=== PATIENT | male | born 1940 | race Caucasian/White ===

== ENCOUNTER 2018-04-24 03:49 | Inpatient (IN) | payer OTHER ==
[2018-04-24] VITALS (13 sets, daily range): BP systolic 127–155; BP diastolic 60–84
[~2018-04-24] VITALS: Ht 180.3 cm; Wt 73.5 kg
[~2018-04-24 03:49] MED LIST: ALBUTEROL2.5 MG/0.5 INH; PREDNISONE 5 MG5 MG PO; PREDNISONE50 MG PO
[2018-04-24] MEDS ORDERED: LIPITOR 20 MG T20 M1 PO (04:01)
[2018-04-24] MEDS ORDERED: ADVAIR HFA 230M12 GM INH (04:02)
[2018-04-24 04:31] LABS: ABSOLUTE EOSINOPHILS 0.3 thou/uL (0.0-0.7); ABSOLUTE LYMPHOCYTES 1.5 thou/uL (0.8-5.3); ABSOLUTE MONOCYTES 0.7 thou/uL (0.0-1.2); ABSOLUTE NEUTROPHILS 4.2 thou/uL (1.6-8.1); BASOPHILS 0.5 %; EOSINOPHILS 3.9 %; HEMATOCRIT 42.1 % (42.0-52.0); HEMOGLOBIN 14.1 gm/dL (14.0-18.0); LYMPHOCYTES 22.3 %; MCH 36.4 pg (26.0-34.0); MCHC 33.5 g/dL (28.0-37.0); MCV 108.6 fL (80.0-100.0); MONOCYTES 10.4 %; MPV 8.2 fl. (7.2-11.1); NUCLEATED RBCS 0 /100WBC; PLATELET COUNT* 220 thou/uL (150-400); POLYS 62.9 %; RBC 3.87 mil/uL (4.50-6.00); RDW-CV 12.8 % (10.5-14.5); WBC 6.7 thou/uL (4.0-11.0)
[2018-04-24 04:35] LABS: CALCIUM 8.7 mg/dL (8.5-10.1); CREATININE 0.9 mg/dL (0.6-1.3); POTASSIUM 3.6 mmol/L (3.5-5.1); PROTIME 10.5 Seconds (9.20-11.50)
[2018-04-24 04:45] LABS: TOTAL BILIRUBIN 0.4 mg/dL (<0.1-1.0)
[2018-04-24 04:46] LABS: TROPONIN-I LEVEL 1.26 ng/mL (<0.06)
[2018-04-24] MEDS ORDERED: ATORVASTATIN CA40 MG PO (05:23)
--- NOTE | 2018-04-24 08:02 | NUR ---
DR. TILLMAN AND CARDIOLOGY LOGGER ALL ROUND TO SEE PT
--- NOTE | 2018-04-24 10:24 | EKG ---
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: DARLEEN : 1940 Requested By: Lynda Wan Order Number: [id number] MD: Abdulkadir Cano Measurements Intervals [place] Rate: 62 P: 70 CO: 154 QRS: -34 QRSD: 97 T: 48 QT: 407 QTc: 414 Interpretive Statements Sinus rhythm Left axis deviation Borderline low voltage, extremity leads Compared to ECG 03/28/2014 10:39:26 Sinus tachycardia no longer present Myocardial infarct finding no longer present Electronically Signed On 04-24-2018 10:24:34 TOWER CLIMBER by Abdulkadir Cano [email or web address] <ELECTRONICALLY SIGNED> By: Abdulkadir Cano MD, FACC 04/24/18 1024 0452 0452 Abdulkadir Cano MD, FAC /EPI
--- NOTE | 2018-04-24 10:24 | EKG ---
[place] [address] ELECTROCARDIOGRAM REPORT Name: FEMI ZAMORANO Room: [address] ADM IN [facility].#: [id number] Admission: 04/24/18 Attend Phys: Brenda Zhang MD Discharge: Date of : 42 Report #: [id number] THIS REPORT FOR: //name// [facility] ED Test Date: 2018-04-24 Test Time: 03:54:57 Pat Name: FEMI ZAMORANO Department: Room: [facility] Gender: M Illuminator: [facility] : 1940 Requested By: Lynda Wan Order Number: [id number] MD: Abdulkadir Cano Measurements Intervals [place] Rate: 68 P: 71 NV: 154 QRS: -33 QRSD: 98 T: 48 QT: 389 QTc: 414 Interpretive Statements Sinus rhythm Left axis deviation Compared to ECG 03/28/2014 10:39:26 Sinus tachycardia no longer present Myocardial infarct finding no longer present Electronically Signed On 04-24-2018 10:24:28 COOLING PAN TENDER by Abdulkadir Cano [email or web address] <ELECTRONICALLY SIGNED> By: Abdulkadir Cano MD, FACC 04/24/18 1024 0354 0354 Abdulkadir Cano MD, [facility] /EPI
--- NOTE | 2018-04-24 10:26 | NUR ---
PT ARRIVED ON UNIT AT 0851 VIA BED WITH NURSING STAFF. PT IS A&O X4, AMBULATORY, DENIES ANY PAIN AT THIS TIME. O2 2LPM VIA NC, LS CTA. HEART MONITOR TRACING SINUS RHYTHM AT THIS TIME. PT HAS HEPARIN GTT RUNNING AT 881/HR AND NS RUNNING AT 100ML/HR, IV IN LEFT FA, NO S/S INFILTRATION. PT ALSO HAS NITRO PASTE ON. ASSESSMENT COMPLETE, PT ORIENTED TO CALL LIGHT AND ROOM. PT TO GO TO MASTER TECHNICIAN FOR PROCEDURE.
[2018-04-24 10:44] LABS: CHOLESTEROL 146 mg/dL (<200); HDL CHOLESTEROL 49 mg/dL (>40); LDL CHOLESTEROL 88 mg/dL (<100); TRIGLYCERIDE 47 mg/dL (<150); VLDL 9 mg/dL (<40)
[2018-04-24 10:45] LABS: SERUM ASSESSMENT Clear
--- NOTE | 2018-04-24 15:03 | CARD ---
[address] [address] CARDIAC CATH REPORT Name: FEMI ZAMORANO Room: [address] IN .R.#: [id number] Admission: 04/24/18 Attend Phys: Brenda Zhang MD Discharge: Date of : 42 Report #: [id number] THIS REPORT FOR: //name// APPROVED REPORT Study performed: 04/24/2018 09:41:34 Patient Details The patient is a 77 year-old male Event Personnel Abdulkadir Cano Players Club Representative, Sepideh Child Monitor, Joao Arboleda Schmalzbach, Brittany RN Tax Professional, James Renteria Fisher Lobster Procedures Performed Left Heart Cath w/or w/o Coronaries [id number] [facility] Place w/wo Plasty Single LAD [id number] Indication Non-STEMI Risk Factors Hypercholesterolemia, Hypertension Admission/Lab Medications/Medications given during procedure Platelet Aff. Inhib., Angiomax bolus and infusion Procedure Narrative The patient was brought electively to the Cardiac Catheterization Laboratory and was prepped and draped in a sterile manner. The left femoral was infiltrated with 2% Lidocaine subcutaneous anesthesia. A Slender Glidesheath sheath was inserted into the . Coronary angiography was performed using coronary diagnostic catheters. The right coronary system was accessed and visualized with a JL4 catheter. The left coronary system was accessed and visualized with a JR4 catheter. The left ventricle was accessed and visualized with a Angled PIG catheter. Left ventricular/Aortic Valve gradient assessed via catheter pullback. Pre-demployment femoral angiogram was performed . Closure device was deployed with a Fr Angioseal. The patient tolerated the procedure well and there were no complications associated with the procedure. There was no hematoma. Intraoperative Conscious Sedation Sedation start time: 10:30 Case end Time: [place] [address] CARDIAC CATH REPORT Name: YVONNELoretaFEMI Brito Room: [address] IN [facility]#: [id number] Admission: 04/24/18 Attend Phys: Brenda Zhang MD Discharge: Date of : 42 Report #: [id number] 12:17 Fentanyl 25 mcg Fluoro Time: 25.5 minutes Dose: DAP 574192 cGycm2 3148 mGy Contrast Type and Amount: Visipaque 230 ml Hemodynamics The aortic pressure is 143/82 mmHg with a mean of 135 mmHg. The left ventricular pressure is 143/21 mmHg with a mean of mmHg. The left ventricular end diastolic pressure is 23 mmHg. There was no gradient across the aortic valve upon pullback. PCI Technique Lesion Anticoagulation was achieved with Angiomax. Percutaneous coronary intervention was performed on the proximal left anterior descending artery segment. The lesion stenosis prior to intervention was 80% with GRETA 3 flow. A 6F XB LAD 3.5 Guide Catheter was used to engage the LCA ostium. A IG: BMW 190cm Interventional Guidewire was used to cross the lesion. BALLOON DILATION A Balloon catheter Trek RX 2.25 X 12 was inserted and inflated up to 14.00atm for 11seconds. STENT DEPLOYMENT A stent Kirk RX Stent 2.20L22fq was inserted and inflated up to 18.00atm for 14seconds. Final angiography reveals 10 % stenosis with GRETA 3 flow. PCI Technique Lesion 2 Percutaneous Coronary Intervention was performed on the ostial LAD. Percutaneous coronary intervention was performed on the ostial LAD. The lesion stenosis prior to intervention was 80% with GRETA 3 flow. Balloon Dilation A Balloon catheter Trek RX 2.25 X 12 was inserted and inflated up to 16atm for 15seconds. Stent Deployment A drug-eluting stent [place] RX Stent 2.5X12mm was inserted and inflated up to dary for seconds. Final angiography reveals 0 % stenosis with GRETA 3 [place] [address] CARDIAC CATH REPORT Name: FEMI ZAMORANO Room: [address]#: [id number] Admission: 04/24/18 Attend Phys: Brenda Zhang MD Discharge: Date of : 42 Report #: [id number] flow. Conclusion #1 significant coronary artery disease characterized by the following: A 80% ostial and proximal LAD stenoses B 40% proximal and 75% calcified midcircumflex stenosis C 40 proximal and mid right coronary narrowing, this being a dominant vessel #2 successful percutaneous coronary intervention with deployment of drug-eluting stents at the sites of 80% ostial and 80% proximal calcified LAD stenosis with 10 and 0% residual narrowing following stent deployment and GRETA-3 flow to the distal vessel Recommendations Cardiac Risk Reduction Program Aggressive Medical Therapy Medications Administered Aspirin (any) Ticagrelor <ELECTRONICALLY SIGNED> By: James Renteria MD, [facility] 04/24/18 1502 1502 1502Jogurpreet Renteria MD, [facility] /INF
[2018-04-25] VITALS (7 sets, daily range): BP systolic 98–137; BP diastolic 52–76
--- NOTE | 2018-04-25 04:08 | NUR ---
ASSUMED CARE OF PT AFTER REPORT AT 1930. PT A&OX4. VSS. PHYSICAL ASSESSMENT COMPLETED AND CHARTED. PT ON RA WITH 94% O2 SAT. PT TRACING SR ON TELE. PT COMPLAINED OF CHEST PAIN & N/V- MORPHINE & ZOFRAN GIVEN. REDDISH BROWN LIQUID EMESIS NOTED. APPROXIMATELY 50 MLS. POST CATH SITE TO LEFT GROIN C/D/I. ATTEMPTED POST CATH SITE TO RIGHT WRIST & RIGHT GROIN C/D. NO BLEEDING NOTED. PT RESTED WELL ON BED. CALL LIGHT WITHIN REACH. BED IN LOW POSITION.
[2018-04-25 05:15] LABS: HEMATOCRIT 38.4 % (42.0-52.0); HEMOGLOBIN 13.3 gm/dL (14.0-18.0); MCHC 34.6 g/dL (28.0-37.0); MCV 107.1 fL (80.0-100.0); MPV 8.2 fl. (7.2-11.1); NUCLEATED RBCS 0 /100WBC; PLATELET COUNT* 203 thou/uL (150-400); RBC 3.59 mil/uL (4.50-6.00); RDW-CV 13.1 % (10.5-14.5); WBC 8.9 thou/uL (4.0-11.0)
[2018-04-25 05:33] LABS: CALCIUM 8.2 mg/dL (8.5-10.1); CREATININE 0.8 mg/dL (0.6-1.3); POTASSIUM 3.8 mmol/L (3.5-5.1)
[2018-04-25 05:43] LABS: ABSOLUTE LYMPHOCYTES 0.8 thou/uL (0.8-5.3); ABSOLUTE MONOCYTES 0.2 thou/uL (0.0-1.2); ABSOLUTE NEUTROPHILS 7.9 thou/uL (1.6-8.1)
[2018-04-25 05:44] LABS: ANISOCYTOSIS 1+; PLATELET ESTIMATE ADEQUATE; POIKILOCYTOSIS 1+
[2018-04-25 06:07] LABS: URINE BILIRUBIN NEGATIVE (Negative); URINE BLOOD TRACE (Negative); URINE CLARITY CLEAR; URINE COLOR YELLOW; URINE GLUCOSE-RANDOM NEGATIVE (Negative); URINE KETONES TRACE (Negative); URINE LEUKOCYTES-REFLEX NEGATIVE (Negative); URINE NITRITE-REFLEX NEGATIVE (Negative); URINE PROTEIN NEGATIVE (Negative); URINE SPECIFIC GRAVITY <= 1.005 (1.005-1.030); URINE UROBILINOGEN 0.2 E.U./dl (0.2-1.0)
[2018-04-25] MEDS ORDERED: NITROGLYCERIN0.4 MG SUBLING (11:25)
[2018-04-25] MEDS ORDERED: BRILINTA90 MG PO (11:25)
[2018-04-25] MEDS ORDERED: LOPRESSOR25 PO (11:25)
[2018-04-25] MEDS ORDERED: ASPIR 8181 MG PO (11:28)
--- NOTE | 2018-04-25 15:25 | 2DMMODE ---
[place] [address] 2 D/M-MODE ECHOCARDIOGRAM Name: LONAFEMI Brito Room: [address] IN [facility]#: [id number] Admission: 04/24/18 Attend Phys: Brenda Zhang, Discharge: Date of : 42 Date of Service: 04/25/18 1524 Report #: [id number] THIS REPORT FOR: //name// APPROVED REPORT Study performed: 04/25/2018 09:53:34 EXAM: Comprehensive 2D, Doppler, and color-flow Echocardiogram Patient Location: In-Patient Room #: 218 Status: routine BSA: 1.78 HR: 79 bpm BP: 118/66 mmHg Rhythm: NSR Other Information Study Quality: Good Indications Non STEMI CAD 2D Dimensions IVSd: 10.35 (7-11mm) LVOT Diam: 22.54 (18-24mm) LVDd: 46.93 mm PWd: 10.00 (7-11mm) Ascending Ao: 30.91 (22-36mm) LVDs: 33.24 (25-40mm) Aortic Root: 33.31 mm Volumes Left Atrial Volume (Systole) LA ESV Index: 22.50 mL/m2 Aortic Valve AoV Peak José Miguel.: 1.21 m/s AO Peak Gr.: 5.86 mmHg LVOT Max P.69 mmHg AO Mean Gr.: 3.58 mmHg LVOT Mean P.64 mmHg LVOT Max V: 0.96 m/s AO V2 VTI: 23.73 cm LVOT Mean V: 0.58 m/s RASHIDA (VTI): 3.17 cm2 LVOT V1 VTI: 18.84 cm Mitral Valve E/A Ratio: 1.14 MV Decel. Time: 246.56 [place] [address] 2 D/M-MODE ECHOCARDIOGRAM Name: FEMI ZAMORANO Room: [address] IN ..#: [id number] Admission: 04/24/18 Attend Phys: Brenda Zhang, Discharge: Date of : 42 Date of Service: 04/25/18 1524 Report #: [id number] MV E Max José Miguel.: 0.69 m/s MV PHT: 71.50 ms MVA (PHT): 3.08 cm2 TDI E/Lateral E': 5.75 E/Medial E': 6.27 Medial E' José Miguel.: 0.11 m/s Lateral E' José Miguel.: 0.12 m/s Pulmonary Valve PV Peak José Miguel.: 1.01 m/s PV Peak Gr.: 4.12 mmHg Tricuspid Valve RAP Estimate: 5.00 mmHg TR Peak Gr.: 25.65 mmHg RVSP: 30.00 mmHg PA Pressure: 30.00 mmHg Left Ventricle The left ventricle is normal size. There is mild distal anterior hypokinesis. There is normal left ventricular wall thickness. Left ventricular systolic function is normal. The left ventricular ejection fraction is within the normal range. LVEF is 55%. The left ventricular diastolic function is normal. Right Ventricle The right ventricle is normal size. The right ventricular systolic function is normal. Atria The left atrium size is normal. The right atrium size is normal. Aortic Valve Mild aortic valve sclerosis. No aortic regurgitation is present. There is no aortic valvular stenosis. Mitral Valve The mitral valve is normal in structure. Trace mitral regurgitation. No evidence of mitral valve stenosis. Tricuspid Valve The tricuspid valve is normal in structure. Trace tricuspid regurgitation. Borderline pulmonary hypertension. Pulmonic Valve The pulmonary valve is normal in structure[place] [address] 2 D/M-MODE ECHOCARDIOGRAM Name: FEMI ZAMORANO Room: [address]#: [id number] Admission: 04/24/18 Attend Phys: Brenda Zhang, Discharge: Date of : 42 Date of Service: 04/25/18 1524 Report #: [id number] valvular regurgitation. Great Vessels The aortic root is normal in size. IVC is normal in size and collapses >50% with inspiration. Pericardium There is no pericardial effusion. <Conclusion> The left ventricle is normal size. There is normal left ventricular wall thickness. Left ventricular systolic function is normal. The left ventricular ejection fraction is within the normal range. LVEF is 55%. The right ventricle is normal size. The left atrium size is normal. Mild aortic valve sclerosis. No aortic regurgitation is present. There is no aortic valvular stenosis. The mitral valve is normal in structure. Trace mitral regurgitation. The tricuspid valve is normal in structure. IVC is normal in size and collapses >50% with inspiration. There is no pericardial effusion. There is mild distal anterior hypokinesis. <ELECTRONICALLY SIGNED> By: James Renteria MD, FACC 04/25/18 1524 1524 1524 James Renteria MD, FACC /INF
--- NOTE | 2018-04-25 18:46 | NUR ---
ASSUMED PT CARE AT 0730, FULL ASSESMENT DONE CHARTED, PT A/O X4, DENIES CHEST PAIN, HAS NOT VOMITED SINCE LAST NIGHT. PTS VSS, ALL CATH INSERTION SITES SOFT, NO HEMATOMA OR BLEEDING PRESENT. PT RELUCTANT TO GET OUT OF BED TODAY, WAS UP TO CHAIR FOR LUNCH AND DINNER, TOOK WALK IN [place] THIS EVENING. PT UP AD DONNY. RA, SR ON THE MONITOR. WILL CONTINUE TO [facility].
[2018-04-26] VITALS (11 sets, daily range): BP systolic 77–102; BP diastolic 45–59
--- NOTE | 2018-04-26 05:45 | NUR ---
ASSUMED CARE OF PT AFTER REPORT AT 1930. PT A&OX4. VSS. PHYSICAL ASSESSMENT COMPLETED AND CHARTED. PT ON RA WITH 945 O2 SAT. PT TRACING AFIB ON TELE. HR 110-170'S. EKG DONE. DR SCHAEFFER INFORMED WITH NEW ORDER. STARTED AMIODARONE DRIP. PT REQUESTED FOR A BREATHING TX. BP 78/46. DR TILLMAN INFORMED WITH NEW ORDER. 500MLS NS BOLUS GIVEN. CALL LIGHT WITHIN REACH.
[2018-04-26 13:01] LABS: CALCIUM 8.1 mg/dL (8.5-10.1); CREATININE 0.6 mg/dL (0.6-1.3); POTASSIUM 3.5 mmol/L (3.5-5.1)
--- NOTE | 2018-04-26 18:42 | NUR ---
assumed pt care at 0730, full assesment done as charted. pt a/o x4, denies pain, BP low this am, on Amio GTT, Fluid boluses given per mar. Pt converted from afib to SR today, bp monitored closely. Pt voiding per urinal.uses call light approprialy. will continue to monitor.
[2018-04-27 00:06] VITALS: BP 92/56
--- NOTE | 2018-04-27 01:44 | NUR ---
ASSUMED CARE OF PT AT 0145 FROM ESTRELLA MCLEAN
--- NOTE | 2018-04-27 01:48 | NUR ---
ASSUMED CARE OF PT AFTER REPORT AT 1930. PT A&OX4. VGSS. PHYSICAL ASSESSMENT COMPLETED AND CHARTED. PT ON RA WITH 93% O2 SAT. PT TRACING SR ON TELE. PT UP ALDIB TO RESTROOM. DENIES ANY PAIN OR DISCOMFORT. CALL LIGHT WITHIN REACH.
[2018-04-27 04:51] VITALS: BP 96/60
--- NOTE | 2018-04-27 06:17 | NUR ---
PT RESTED WELL T/O THIS SHIFT. NO C/O PAIN, SOA, OR DISCOMFORT. NO NEW CONERNS AT THIS TIME. HOURLY ROUNDING FOR PT SAFETY. CLWR.
[2018-04-27 07:45] VITALS: BP 86/50
[2018-04-27 07:55] VITALS: BP 86/50
--- NOTE | 2018-04-27 12:27 | EKG ---
[place] [address] ELECTROCARDIOGRAM REPORT Name: FEMI ZAMORANO Room: [address] ADM IN M.R.#: [id number] Admission: 04/24/18 Attend Phys: Brenda Zhang MD Discharge: Date of : 42 Report #: [id number] THIS REPORT FOR: //name// [facility] Test Date: 2018-04-25 Test Time: 19:39:40 Pat Name: FEMI ZAMORANO Department: Room: [address] Gender: M Percolator Operator: I : 1940 Requested By: Abdulkadir Cano Order Number: [id number] MD: Ian Andres Measurements Intervals [place] Rate: 130 P: CO: QRS: -50 QRSD: 89 T: 83 QT: 335 QTc: 493 Interpretive Statements Atrial fibrillation Left anterior fascicular block Borderline low voltage, extremity leads Compared to ECG 04/24/2018 04:52:32 Left anterior fascicular block now present Sinus rhythm no longer present Left-axis deviation no longer present Electronically Signed On 04-27-2018 12:27:00 RADIATOR SPECIALIST by Ian Andres [email or web address] <ELECTRONICALLY SIGNED> By: Ian Andres MD, FACC 04/27/18 1227 38 38 Ian Andres MD, FAC /EPI
--- NOTE | 2018-04-27 12:29 | EKG ---
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: : 1940 Requested By: Paul Ac Order Number: [id number] Reading MD: Ian Andres Measurements Intervals [place] Rate: 82 P: 45 VA: 150 QRS: -38 QRSD: 94 T: 80 QT: 395 QTc: 462 Interpretive Statements Sinus rhythm Left axis deviation Low voltage, extremity leads Baseline wander in lead(s) V2 Compared to ECG 04/24/2018 04:52:32 No significant changes Electronically Signed On 04-27-2018 12:29:38 DIE LAY OUT WORKER by Ian Andres [email or web address] <ELECTRONICALLY SIGNED> By: Ian Andres MD, FACC 04/27/18 1229 1113 1113 Ian Andres MD, FAC /EPI
[2018-04-27] MEDS ORDERED: PACERONE 200 M200 M1 PO (13:22)
--- NOTE | 2018-04-27 14:41 | NUR ---
ASSUMED PT CARE AT 0730, FULL ASSESMENT DONE CHARTED. PT A/OX 4, DENIES PAIN, BP STILL SOFT, PT ASYMPTOMATIC. PT ABLE TO AMBULATE AD DONNY, SR ON THE MONITOR. RECIEVED DISCHARGE ORDERS. DISCUSSED ORDERS WITH PT, QUESTIONS ANSERED. PT LEFT UNIT WITH BELONGINGS AT APPROX 1410.
== END 2018-04-27 14:09 | disposition home or self-care (01) | DRG 246 ==
LOC: M.ERS 03:49 → M.TBA-ER 04:56 → M.2W 04:56
PROVIDERS: Emergency Medicine; Internal Medicine; Internal Medicine Cardiovascular Disease; ADMIT Internal Medicine
DX: I21.4 Non-ST elevation (NSTEMI) myocardial infarction (principal); I50.33 Acute on chronic diastolic (congestive) heart failure; J45.909 Unspecified asthma, uncomplicated; M06.9 Rheumatoid arthritis, unspecified; E78.5 Hyperlipidemia, unspecified; I25.10 Atherosclerotic heart disease of native coronary artery without angina pectoris; I95.9 Hypotension, unspecified; I48.0 Paroxysmal atrial fibrillation; Z79.899 Other long term (current) drug therapy; Z79.51 Long term (current) use of inhaled steroids; Z87.891 Personal history of nicotine dependence

== ENCOUNTER 2019-03-26 18:00 | Inpatient (IN) | payer OTHER ==
[~2019-03-26] VITALS: Ht 177.8 cm; Wt 73.0 kg
[~2019-03-26 18:00] MED LIST changes: +ADVAIR HFA 230M12 GM INH; +ASPIR 8181 MG PO; +ATORVASTATIN CA40 MG PO; +BRILINTA90 MG PO; +LIPITOR 20 MG T20 M1 PO; +LOPRESSOR25; +NITROGLYCERIN0.4 MG SUBLING; +PACERONE 200 M200 M1 PO
[2019-03-26 18:06] VITALS: BP 119/64
[2019-03-26 18:47] LABS: ABSOLUTE MONOCYTES 0.7 thou/uL (0.0-1.2); ABSOLUTE NEUTROPHILS 5.5 thou/uL (1.6-8.1); BASOPHILS 0.4 %; EOSINOPHILS 0.4 %; HEMATOCRIT 44.4 % (42.0-52.0); LYMPHOCYTES 14.3 %; MCH 36.1 pg (26.0-34.0); MCHC 33.8 g/dL (28.0-37.0); MCV 106.9 fL (80.0-100.0); MONOCYTES 9.4 %; MPV 8.8 fl. (7.2-11.1); NUCLEATED RBCS 0 /100WBC; PLATELET COUNT* 245 thou/uL (150-400); POLYS 75.5 %; RBC 4.16 mil/uL (4.50-6.00); RDW-CV 12.8 % (10.5-14.5); WBC 7.3 thou/uL (4.0-11.0)
[2019-03-26 18:57] LABS: CALCIUM 9.5 mg/dL (8.5-10.1); CREATININE 0.9 mg/dL (0.6-1.3)
[2019-03-26 18:58] LABS: POTASSIUM 5.1 mmol/L (3.5-5.1)
[2019-03-26 19:10] LABS: ALBUMIN 2.9 g/dL (3.4-5.0); TOTAL BILIRUBIN 1.3 mg/dL (<0.1-1.0); TOTAL PROTEIN 8.9 g/dL (6.4-8.2)
[2019-03-26 21:00] VITALS: BP 105/54
[2019-03-26 21:07] VITALS: BP 107/58
[2019-03-26 21:55] LABS: INFLUENZA A ANTIGEN Negative (Negative); INFLUENZA B ANTIGEN Negative (Negative)
[2019-03-27 01:11] LABS: URINE BLOOD NEGATIVE (Negative); URINE CLARITY CLEAR; URINE COLOR YELLOW; URINE GLUCOSE-RANDOM 1+ (Negative); URINE KETONES 2+ (Negative); URINE LEUKOCYTES-REFLEX NEGATIVE (Negative); URINE NITRITE-REFLEX NEGATIVE (Negative); URINE PROTEIN TRACE (Negative); URINE UROBILINOGEN >= 8.0 E.U./dl (0.2-1.0)
[2019-03-27 01:14] LABS: ICTOTEST (BILI CONFIRMATORY) Negative (Negative); URINE BILIRUBIN 1+ (Negative)
[2019-03-27 08:30] VITALS: BP 107/52
[2019-03-27 11:51] LABS: ABSOLUTE LYMPHOCYTES 0.6 thou/uL (0.8-5.3); ABSOLUTE MONOCYTES 0.6 thou/uL (0.0-1.2); BASOPHILS 0.2 %; HEMATOCRIT 36.8 % (42.0-52.0); HEMOGLOBIN 12.8 gm/dL (14.0-18.0); LYMPHOCYTES 9.3 %; MCH 36.9 pg (26.0-34.0); MCHC 34.7 g/dL (28.0-37.0); MCV 106.1 fL (80.0-100.0); MONOCYTES 9.6 %; MPV 8.4 fl. (7.2-11.1); NUCLEATED RBCS 0 /100WBC; PLATELET COUNT* 218 thou/uL (150-400); POLYS 80.9 %; RBC 3.47 mil/uL (4.50-6.00); RDW-CV 12.6 % (10.5-14.5); WBC 6.1 thou/uL (4.0-11.0)
[2019-03-27 12:09] LABS: ALBUMIN 2.2 g/dL (3.4-5.0); CALCIUM 8.8 mg/dL (8.5-10.1); CREATININE 0.9 mg/dL (0.6-1.3); TOTAL BILIRUBIN 0.4 mg/dL (<0.1-1.0)
[2019-03-27 12:12] LABS: POTASSIUM 3.5 mmol/L (3.5-5.1)
--- NOTE | 2019-03-27 13:28 | EKG ---
[place] [address] ELECTROCARDIOGRAM REPORT Name: FEMI ZAMORANO Room: [address] ADM IN M.R.#: [id number] Admission: 03/26/19 Attend Phys: Tj Sterling MD Discharge: Date of : 42 Report #: [id number] THIS REPORT FOR: //name// [facility] ED Test Date: 2019-03-26 Test Time: 18:14:38 Pat Name: FEMI ZAMORANO Department: Room: [facility] Gender: M Correctional Facility Psychiatrist: : 1940 Requested By: Shelley Pacheco Order Number: [id number] MD: James Renteria Measurements Intervals [place] Rate: 87 P: 78 GA: 159 QRS: -38 QRSD: 91 T: 57 QT: 368 QTc: 443 Interpretive Statements Sinus rhythm Left axis deviation Borderline low voltage, extremity leads Abnormal R-wave progression, late transition Baseline wander in lead(s) V1 Compared to ECG 04/26/2018 11:13:59 No significant changes Electronically Signed On 03-27-2019 13:27:45 SALVAGE SUPERVISOR by James Renteria [email or web address] <ELECTRONICALLY SIGNED> By: James Renteria MD, FAC 03/27/19 1327 1814 181 James Renteria MD, [facility] /EPI
[2019-03-27 16:15] VITALS: BP 91/52
[2019-03-27 19:30] VITALS: BP 93/50
[2019-03-28 08:00] VITALS: BP 108/66
[2019-03-28] MEDS ORDERED: ZITHROMAX250 MG PO (12:12)
[2019-03-28] MEDS ORDERED: CEFDINIR300 MG PO (12:13)
[2019-03-28 12:17] VITALS: BP 108/66
== END 2019-03-28 14:30 | disposition home or self-care (01) | DRG 871 ==
LOC: M.ERS 18:00 → M.3W 19:09 → M.TBA-ER 19:09 → M.3W 21:00
PROVIDERS: Internal Medicine; Physician Assistant; ADMIT Internal Medicine
PROC: 3E0L3GC Introduction of Other Therapeutic Substance into Pleural Cavity, Percutaneous Approach (ICD-10-PCS; principal; 2019-03-27)
DX: A41.9 Sepsis, unspecified organism (principal); J15.6 Pneumonia due to other Gram-negative bacteria; J44.0 Chronic obstructive pulmonary disease with (acute) lower respiratory infection; J44.1 Chronic obstructive pulmonary disease with (acute) exacerbation; J91.8 Pleural effusion in other conditions classified elsewhere; M06.9 Rheumatoid arthritis, unspecified; I25.10 Atherosclerotic heart disease of native coronary artery without angina pectoris; I25.2 Old myocardial infarction; Z79.899 Other long term (current) drug therapy; Z79.51 Long term (current) use of inhaled steroids; Z79.82 Long term (current) use of aspirin; Z83.79 Family history of other diseases of the digestive system; Z87.891 Personal history of nicotine dependence; Z81.1 Family history of alcohol abuse and dependence

== ENCOUNTER → 2019-04-22 | Outpatient (CLI) | payer MEDICARE ==
[~2019-04-22] MED LIST changes: +CEFDINIR300 MG PO; +ZITHROMAX250 MG PO
== END ==
LOC: M.CT 13:41
DX: N28.1 Cyst of kidney, acquired (principal); R93.5 Abnormal findings on diagnostic imaging of other abdominal regions, including retroperitoneum; R93.89 Abnormal findings on diagnostic imaging of other specified body structures; Z86.79 Personal history of other diseases of the circulatory system; Z86.010 Personal history of colon polyps; Z79.899 Other long term (current) drug therapy; Z79.82 Long term (current) use of aspirin